=== PATIENT | female | born 1980 | race Caucasian/White ===

== ENCOUNTER 2025-03-16 12:47 | Emergency (ER) | payer MEDICAID, SELFPAY ==
--- NOTE | 2025-03-16 12:59 | EKG_ITS ---
[facility] Test Date: 2025-03-16 Pat Name: ALEXANDRA BOURGEOIS Department: Room: - Gender: Female Director Clinical Data: : 1980 Requested By: Félix Randolph Order Number: [id number] Reading MD: Félix Randolph Measurements Intervals [place] Rate: 81 P: 62 VA: 152 QRS: 66 QRSD: 78 T: 55 QT: 364 QTc: 424 Interpretive Statements SINUS RHYTHM POSSIBLE RIGHT VENTRICULAR CONDUCTION DELAY [RSR (QR) IN V1/V2] No previous ECG available for comparison /store/[email or web address]/[id number]
[2025-03-16] MEDS: DiphenhydrAMINE INJ 50 MG/ML VIAL 25 MG IVP (13:01)
[2025-03-16] MEDS: FAMOTIDINE INJ 10 MG/ML VIAL 2 ML 20 MG IVP (13:01)
[2025-03-16] MEDS: ONDANSETRON INJ 2 MG/ML INJ 2 ML 4 MG IV (13:02)
[2025-03-16] MEDS: MethylPREDNISolone SOD SUCC 62.5 MG/ML 2ML VIAL 125 MG IVP (13:02)
[2025-03-16] MEDS: SODIUM CHLORIDE 0.9% 1000 ML 2,000 ML 999 ML IV (13:05)
--- NOTE | 2025-03-16 13:24 | EDNOTE_ITS ---
ED Allergic Reaction RME/HPI General Chief complaint: Allergic Reaction Stated complaint: ALLERGIC REACTION TO BEE STING Time Seen by Provider: 03/16/25 12:58 Arrival date/time: 03/16/25 12:47 RME / HPI RME / HPI narrative: DR. VALLECILLO MAIN ED EVALUATION: 44 year old female presents to the Emergency Department brought in by the with complaint of a severe allergic reaction after a bee sting. called police and EMS but did not wait and brought the patient here and was seen at the triage area. Patient has history of allergies and has epi pens; at scene they tried an epi pen but missed the spot and then has another dose. At arrival, the patient passed out, was cold and clammy, and unresponsive; but then the patient became more awake. Per , patient has chronic lower abdominal pain. She has been seen here for it but has not seen a GI specialist, possibly fibroids but unsure. Patient complains of chronic lower abdominal cramping. Related Data Previous Rx's ?Medication ?Instructions ?Recorded hydrocodone 5 mg-acetaminophen 325 1 tab PO Q6H PRN pa in #5 tabs 07/11/24 mg tablet omeprazole 20 mg capsule,delayed 20 mg PO QDAY #30 cap s 07/11/24 release sucralfate 1 gram tablet (Carafate) 1 g PO BID #30 tab s 07/11/24 epinephrine 0.3 mg/0.3 mL 0.3 ml subcut DAILY ALLERGIC 03/16/25 injection, auto-injector (EpiPen REACTION #2 ea 2-Deshaun) Allergies Allergy/AdvReac Type Severity Reaction Status Date / Time bee venom protein (honey bee) Allergy Verified 07/10/24 15:09 Review of Systems Review of Systems Systems Reviewed: All systems reviewed, normal except as documented Narrative Review of Systems: GEN: No fever, no chills, no weight loss, allergic reaction (see HPI) EYES: No discharge, no visual changes, no pain HEENT: No ear pain, no congestion, no sore throat PULM: No shortness of breath, no cough, no congestion CV: No chest pain, no dyspnea on exertion, no palpitations GI: No nausea, no vomiting, no diarrhea, + chronic lower abdominal pain, no constipation : No frequency, no urgency and no dysuria MUSC/SKEL: No joint pain, no back pain SKIN: No rash PSYCH: No hallucinations, no depression HEME/LYMPH: No easy bleeding or bruising tendencies NEURO: No weakness, no headache Past Medical History Past Medical History CARDIAC: Positive Hypercholesterolemia Social History SMOKING STATUS: Light (< 1 pack/day) SUBSTANCE USE: does not use ALCOHOL: Current ED Exam General General appearance: Present other (Initially patient was obtunded, cold, and clammy; then more alert.) Head Head exam: Present atraumatic, normocephalic and normal inspection Eye Eye exam: Present normal appearance, PERRL and EOMI ENT ENT exam: Present normal exam, normal oropharynx and mucous membranes moist Neck Neck exam: Present normal inspection, full ROM and trachea midline Chest Chest inspection: Present normal inspection and symmetric chest wall rise Respiratory Respiratory exam: Present normal lung sounds bilaterally Cardiovascular Cardiovascular exam: Present regular rate, normal rhythm and normal heart sounds Abdominal Exam Abdominal exam: Present soft and normal bowel sounds; Absent tenderness (chronic lower abdominal cramping but no tenderness at all on palpation), guarding or [place] ound Extremities Exam Extremities exam: Present normal inspection and full ROM Back Exam Back exam: Present normal inspection and full ROM Neurological Exam Neurological exam: Present alert, oriented X3 and CN II-XII intact Psychiatric Psychiatric exam: Present normal affect and normal mood Skin Skin exam: Present warm, intact, normal color and other (cool) Course Quality Measures none Orders Category Date Time Status Telecommunication Equipment Repairer NOW Care 03/16/25 12:59 Active Continuous Pulse Oximetry NOW Care 03/16/25 13:00 Active EKG (ED ONLY) *Do not use* NOW Care 03/16/25 12:59 Completed Insert IV STAT Care 03/16/25 12:59 Active EKG (ED Only) Stat Exams 03/16/25 12:59 Draft Acetaminophen Ivpb [Ofirmev Inj] Med 03/16/25 13:02 Active 1,000 mg in 100 ml IV Q6H DiphenhydrAMINE INJ [Benadryl Inj] Med 03/16/25 12:49 Discontinued 25 mg IVP X1 ONE Famotidine Inj [Pepcid Inj] Med 03/16/25 12:49 Discontinued 20 mg IVP X1 ONE LORazepam [Ativan Inj] Med 03/16/25 13:00 Discontinued 0.5 mg IVP X1 ONE MethylPREDNISolone.* [SoluMEDROL Inj] Med 03/16/25 12:49 Discontinued 125 mg IVP X1 ONE Ondansetron Inj [Zofran Inj] Med 03/16/25 12:49 Discontinued 4 mg IV X1 ONE Sodium Chloride 0.9% 1000 ml [Ns] 2,000 ml Med 03/16/25 12:51 Discontinued IV 999 mls/hr Oxygen Delivery STAT RT 03/16/25 12:59 Active Reevaluation(s) Reevaluation #1: After warm blankets, medicine, and fluids the patient is feeling better and has no discomfort. Time: 13:21 Vital Signs Vital signs: Vital Signs Temperature 97.9 F 03/16/25 13:28 Pulse Rate 94 03/16/25 13:28 Respiratory Rate 20 03/16/25 13:28 Blood Pressure 111/60 03/16/25 13:28 Pulse Oximetry (%) 99 03/16/25 13:28 Oxygen Delivery Method Room Air 03/16/25 13:28 Allergic Reaction MDM Narrative MDM Narrative:: Cely Maldonado am scribing for and in the presence of Dr. Vallecillo. Patient data External records reviewed:: [facility] previous records (Reviewed last ED visit dated 07/10/24, discharged with the following: Degeneration of uterine fibroid) Clinical information provided by:: patient and spouse Social determinants that could affect healthcare access:: alcohol use Patient has the following chronic illnesses:: Allergies has an EPI pen, GERD. How is presenting disease/condition affected by chronic disease/condition?: exacerbated by Evaluation data The following diagnostics were reviewed and interpreted by me:: lab results and EKG tracing(s) Lab and/or radiology exams considered but not ordered:: none Interpretation Summary: EKG#1: EKG at 1429 hours. Interpreted by me: sinus rhythm, rate 81, conduction delay, ME interval 152 ms, QRS 78 ms, QT/QTc 364/402, P-R-T axis 62, 66, and 55 Medications / Prescriptions Medications or Prescriptions considered but not ordered:: none Medication administrations:: Medication Administration History Acetaminophen (Ofirmev Inj) 1,000 mg in 100 mls @ 250 mls/hr IV Q6H KOTA Stop: 03/17/25 07:25 Last Admin: 03/16/25 14:05 Dose: 250 mls/hr Documented By: Discontinued Medications Diphenhydramine HCl (Diphenhydramine Inj 50 Mg/Ml Vial) 25 mg IVP X1 ONE Stop: 03/16/25 12:50 Last Admin: 03/16/25 13:01 Dose: 25 mg Documented By: DANIEL Famotidine (Famotidine Inj 10 Mg/Ml Vial 2 Ml) 20 mg IVP X1 ONE Stop: 03/16/25 12:50 Last Admin: 03/16/25 13:01 Dose: 20 mg Documented By: DANIEL Sodium Chloride (Ns) 2,000 mls @ 999 mls/hr IV .Q2H1M ONE Stop: 03/16/25 14:51 Last Admin: 03/16/25 13:05 Dose: 999 mls/hr Documented By: DANIEL Lorazepam (Lorazepam 2 Mg/Ml Vial) 0.5 mg IVP X1 ONE Stop: 03/16/25 13:01 Last Admin: 03/16/25 14:06 Dose: 0.5 mg Documented By: SARAH Methylprednisolone Sodium Succinate (Methylprednisolone Sod Succ 62.5 Mg/Ml 2ml Vial) 125 mg IVP X1 ONE Stop: 03/16/25 12:50 Last Admin: 03/16/25 13:02 Dose: 125 mg Documented By: DANIEL Ondansetron HCl (Ondansetron Inj 2 Mg/Ml Inj 2 Ml) 4 mg IV X1 ONE; Protocol Stop: 03/16/25 12:50 Last Admin: 03/16/25 13:02 Dose: 4 mg Documented By: DANIEL see above Consultations Consultation(s) initiated? (list below): No Diagnosis Differential Diagnosis allergic reaction: anaphylaxis, allergic reaction, angioedema and contact dermatitis Most likely diagnosis given after review of the tests above:: Allergic reaction to bee sting Chronic abdominal pain Admission Indicated Admission indicated?: not indicated Admission Request Was there a request for admission?: No Disposition Plan Disposition Plan: Discharge Discharge Attestation Discharge Attestation: The patient and all family members were given an opportunity to ask questions and understood the discharge instructions. Discharge instructions specifically effects, indications for sooner follow up or return to the emergency department, and the expected course of current diagnosis. Patient condition: Stable Critical Care Time Critical Care Time Critical Care Time: Yes Total Critical Care Time (min.): 60 Attestation: The high probability of sudden, clinically significant deterioration in the patient?s condition required the highest level of my preparedness to intervene urgently. The services I provided to this patient were to treat and/or prevent clinically significant deterioration. Services included the following: chart data review, reviewing nursing notes and/or old charts, documentation time, media consultant collaboration regarding findings and treatment options, medication orders and management, direct patient care, vital sign assessments and ordering, interpreting and reviewing diagnostic studies and lab tests. Aggregate critical care time includes only time during which I was engaged in work directly related to the patient?s care, as described above, whether at bedside or elsewhere in the Emergency Department. It did not include time spent performing other reported procedures or the services of residents, students, nurses or physician assistants. Discharge Plan Plan Patient Disposition: HOME (Self Care) Patient condition on transfer: Stable Prescriptions/Referrals Prescriptions/Med Rec: New epinephrine [EpiPen 2-Deshaun] 0.3 mg/0.3 mL auto-injector 0.3 ml subcut DAILY MDD 2 Qty: 2 2RF No Action omeprazole 20 mg capsule,delayed release(DR/EC) 20 mg PO QDAY Qty: 30 0RF sucralfate [Carafate] 1 gram tablet 1 g PO BID Qty: 30 0RF hydrocodone-acetaminophen 5-325 mg tablet 1 tab PO Q6H MDD 9 PRN (Reason: pain) Qty: 5 0RF Problem List Clinical Impression: Allergic reaction to bee sting, Chronic abdominal pain Patient/Caregiver Discharge Instructions Education Materials: ED BEE STING General Allergic Rxn Additional Instructions: Please follow-up with your primary care physician within a week. Return to the Emergency Department as needed. Print Language: Indonesian Stand Alone Forms: Mag[employer]ie Award Info., Patient Portal Info Letter
[2025-03-16 13:28] VITALS: BP 111/60; PULSE 94; RESP 20; TEMP 36.6; O2SAT 99
[2025-03-16] MEDS: ACETAMINOPHEN IVPB 1,000 MG/100 ML VIAL 250 MG IV (14:05)
[2025-03-16] MEDS: LORazepam 2 MG/ML VIAL 0.5 MG IVP (14:06)
== END 2025-03-16 17:05 | disposition home or self-care (01) ==
LOC: SERX 14:30
PROVIDERS: Emergency Provider Family Medicine
DX: T63.441A Toxic effect of venom of bees, accidental (unintentional), initial encounter (principal); G89.29 Other chronic pain; R10.30 Lower abdominal pain, unspecified
CPT/HCPCS: 93005; 96374; 99284; J0131; J1200; J2060; J2405; J2919; J3490; J7030

== ENCOUNTER 2025-07-10 19:02 | Emergency (ER) | payer MEDICAID, SELFPAY ==
--- NOTE | 2025-07-10 19:22 | XR_ITS ---
Examination: Foot, left, 3 views Technique: AP, oblique, lateral views foot, 3 views Date and time of exam: July 10, 2025 1930 hours INDICATIONS: Twisting injury to the foot 2 days ago, foot pain. FINDINGS: No acute fracture No dislocation No foreign body IMPRESSION: No acute fracture
[2025-07-10 20:00] VITALS: BP 148/82; PULSE 87; RESP 20; TEMP 36.7; O2SAT 98; BMI 28.1
--- NOTE | 2025-07-10 20:02 | XR_ITS ---
EXAMINATION: Ankle, left 3 views . Technique: Ankle AP, oblique, lateral 3 views Date and time of exam: July 10, 2025, 2004 hours INDICATIONS: Twisting injury to the ankle today, ankle pain. FINDINGS: No acute fracture No dislocation No foreign body IMPRESSION: No acute fracture
[2025-07-10] MEDS: HYDROcodone/APAP 5/325 TABLET 1 TAB PO (20:30)
--- NOTE | 2025-07-10 21:17 | XR_ITS ---
Examination: CT left ankle, without contrast. 2-D sagittal reconstructions. 2-D coronal reconstructions. 3-D reconstructions. Date and time of exam:July 10, 2025 2129 hours INDICATIONS: Patient fell today with injury to the ankle, ankle pain CTDI: vol (mGy):4.79 DLP: (mGycm):142 Technique: Multiple 1.25 mm axial sections of the left ankle have been obtained. 2-D sagittal and coronal reconstructions have been obtained. 3-D reconstructions have been obtained. Low dose protocols were performed. One or more of the following dose reduction techniques were used; automated exposure control, adjustment of the mA and/or KV according to patient size, use of iterative reconstruction technique. Findings: No fracture or dislocation. No opaque foreign body Tarsal bones are intact No Lisfranc tarsometatarsal dislocation IMPRESSION: No ankle fracture or dislocation As clinically warranted, an elective right ankle follow-up would best assess for tendon or ligamentous tear
--- NOTE | 2025-07-11 03:16 | EDNOTE_ITS ---
Lower Extremity Injury RME/HPI General Chief Complaint: Ankle/Foot Injury Stated Complaint: Left foot fell down stairs last night Time Seen by Provider: 07/10/25 20:02 Arrival date/time: 07/10/25 19:02 45F with no significant PMH presents to ED with L ankle/foot pain after she fell down some steps on her stairs. Patient denies hitting her head/neck. Limitations: no limitations Related Data Previous Rx's ?Medication ?Instructions ?Recorded hydrocodone 5 mg-acetaminophen 325 1 tab PO Q6H PRN pa in #5 tabs 07/11/24 mg tablet omeprazole 20 mg capsule,delayed 20 mg PO QDAY #30 cap s 07/11/24 release sucralfate 1 gram tablet (Carafate) 1 g PO BID #30 tab s 07/11/24 epinephrine 0.3 mg/0.3 mL 0.3 ml subcut DAILY ALLERGIC 03/16/25 injection, auto-injector (EpiPen REACTION #2 ea 2-Deshaun) Allergies Allergy/AdvReac Type Severity Reaction Status Date / Time bee venom protein (honey bee) Allergy Verified 07/10/25 19:09 Review of Systems Review of Systems Systems Reviewed: All systems reviewed, normal except as documented Constitutional Constitutional: Reports system reviewed and no additional complaints, except as documented, Denies fever(s) and Denies headache(s) ENT Ears, Nose, Mouth, and Throat: Denies disequilibrium and Denies headache(s) Cardiovascular Cardiovascular: Reports system reviewed and no additional complaints, except as documented, Denies chest pain and Denies dyspnea Respiratory Respiratory: Reports system reviewed and no additional complaints, except as doc umented, Denies cough and Denies dyspnea Gastrointestinal Gastrointestinal: Reports system reviewed and no additional complaints, except as documented, Denies abdominal pain, Denies nausea and Denies vomiting Musculoskeletal Musculoskeletal: Reports as per HPI and Reports arthralgias Neurologic Neurologic: Reports system reviewed and no additional complaints, except as documented, Denies confusion, Denies disequilibrium and Denies headache(s) Psychiatric Psychiatric: Denies confusion Past Medical History Past Medical History NEUROLOGIC: Negative Neurological Disorders CARDIAC: Positive Hypercholesterolemia; Negative Cardiac Disorders or Congestive Heart Failure RESPIRATORY: Negative Chronic Obstructive Pulmonary Disease (COPD) or Asthma GASTROINTESTINAL: Negative Gastrointestinal Disorders GENITOURINARY: Negative Genitourinary Disorders or Renal Disease MUSCULOSKELETAL: Negative Musculoskeletal Disorders ENDOCRINE: Negative Endocrine Disorders, Diabetes Mellitus Type 1 or Diabetes Mellitus Type 2 HEMATOLOGIC: Negative Blood Disorders or Sickle Cell Disease OTHER HISTORY: Negative Autoimmune Disease Social History SMOKING STATUS: Current some day smoker SUBSTANCE USE: does not use ED Exam General Limitations: Present no limitations General appearance: Present alert and in no apparent distress Head Head exam: Present atraumatic Eye Eye exam: Present normal appearance, PERRL and EOMI ENT ENT exam: Present normal exam, normal oropharynx and mucous membranes moist Neck Neck exam: Present normal inspection, full ROM and trachea midline Chest Chest inspection: Present normal inspection and symmetric chest wall rise Respiratory Respiratory exam: Present normal lung sounds bilaterally Cardiovascular Cardiovascular exam: Present regular rate, normal rhythm and normal heart sounds Abdominal Exam Abdominal exam: Present soft and normal bowel sounds Expanded Lower Extremity Exam Ankle exam: Present tenderness (L) Back Exam Back exam: Present normal inspection and full ROM Neurological Exam Neurological exam: Present alert, oriented X3 and CN II-XII intact Psychiatric Psychiatric exam: Present normal affect and normal mood Skin Skin exam: Present warm, dry, intact and normal color Course Quality Measures none Orders Category Date Time Status Crutches .NOW Care 07/10/25 22:39 Completed paige wrap [Splint / Immobilizer] STAT Care 07/10/25 22:[address] ankle LT wo con Stat Exams 07/10/25 21:17 Completed XR ankle comp LT min 3V Stat Exams 07/10/25 20:02 Completed XR foot comp LT min 3V Stat Exams 07/10/25 19:22 Completed HYDROcodone*/APAP 5/325 [[place] 5/325] Med 07/10/25 20:02 Discontinued 1 tab PO X1 ONE Vital Signs Vital signs: Vital Signs Temperature 98.1 F 07/10/25 20:00 Pulse Rate 87 07/10/25 20:00 Respiratory Rate 20 07/10/25 20:00 Blood Pressure 148/82 H 07/10/25 20:00 Pulse Oximetry (%) 98 07/10/25 20:00 Oxygen Delivery Method Room Air 07/10/25 20:00 O2 at 98% on RA and WNLs Extremity Injury, Lower MDM Narrative MDM Narrative:: 45F with no significant PMH presents to ED with L ankle/foot pain after she fell down some steps on her stairs. Patient denies hitting her head/neck. Physical exam reveals L ankle tenderness. ROM limited. Patient is afebrile, calm, and alert. XR no fx. Given degree of tenderness, CT was obtained, which also showed no fx. Given PAIGE, meds, and behavioral health counselor. Patient already had crutches. Patient data External records reviewed:: [facility] previous records Clinical information provided by:: patient Social determinants that could affect healthcare access:: none Patient has the following chronic illnesses:: none How is presenting disease/condition affected by chronic disease/condition?: no chronic disease Evaluation data The following diagnostics were reviewed and interpreted by me:: radiology exam(s) Lab and/or radiology exams considered but not ordered:: ordered Interpretation Summary: above Medications / Prescriptions Medications or Prescriptions considered but not ordered:: ordered Medication administrations:: Medication Administration History Discontinued Medications Hydrocodone Bitart/Acetaminophen (Hydrocodone/Apap 5/325 Tablet) 1 tab PO X1 ONE Stop: 07/10/25 20:03 Last Admin: 07/10/25 20:30 Dose: 1 tab Documented By: above Consultations Consultation(s) initiated? (list below): No Diagnosis Extremity Injury, Lower Differential Diagnosis: ankle sprain and strain, acute internal derangement of knee, puncture wound of foot, fracture of toe and ankle fracture Most likely diagnosis given after review of the tests above:: ankle sprain and strain Admission Indicated Admission indicated?: not indicated Admission Request Was there a request for admission?: No Disposition Plan Disposition Plan: Discharge Discharge Attestation Discharge Attestation: The patient and all family members were given an opportunity to ask questions and understood the discharge instructions. Discharge instructions specifically effects, indications for sooner follow up or return to the emergency department, and the expected course of current diagnosis. Patient condition: Stable Discharge Plan Plan Patient Disposition: HOME (Self Care) Discharge Disposition comment: STable Prescriptions/Referrals Prescriptions/Med Rec: No Action omeprazole 20 mg capsule,delayed release(DR/EC) 20 mg PO QDAY Qty: 30 0RF sucralfate [Carafate] 1 gram tablet 1 g PO BID Qty: 30 0RF hydrocodone-acetaminophen 5-325 mg tablet 1 tab PO Q6H MDD 9 PRN (Reason: pain) Qty: 5 0RF epinephrine [EpiPen 2-Deshaun] 0.3 mg/0.3 mL auto-injector 0.3 ml subcut DAILY MDD 2 Qty: 2 2RF Referrals: Casper,Orquidea, PA-C [Primary Care Provider] - In 1 week Problem List Clinical Impression: Ankle sprain and strain Patient/Caregiver Discharge Instructions Education Materials: ED Ankle Sprain (Adult) Additional Instructions: Please follow-up with PCP within 24-48 hours and return immediately if symptoms worsen. If problem persists, recommend outpatient PT and/or MRI follow-up. In the meantime, rest, use ice/heat, and/or compression. Print Language: Jordanian Stand Alone Forms: Patient Portal Info Letter PA/SPECIAL EFFECTS SPECIALIST Supervising Physician PA/SPECIAL EFFECTS SPECIALIST Supervising Physician: Dr. Novoa
== END 2025-07-10 23:01 | disposition home or self-care (01) ==
PROVIDERS: Emergency Provider Emergency Medicine; PCP Physician Assistant
DX: S93.402A Sprain of unspecified ligament of left ankle, initial encounter (principal); S96.912A Strain of unspecified muscle and tendon at ankle and foot level, left foot, initial encounter; W10.9XXA Fall (on) (from) unspecified stairs and steps, initial encounter
CPT/HCPCS: 73610; 73630; 73700; 99284; A9270

== ENCOUNTER → 2025-07-31 | Outpatient (CLI) | payer MEDICAID, SELFPAY ==
--- NOTE | 2025-07-31 11:30 | XR_ITS ---
Examination: Abdomen sonogram, complete Date and time of exam: July 31, 2025 1202 hours INDICATIONS: Onset lower abdominal pain beginning one year ago. Technique: Multiple real-time grayscale transabdominal sonographic images of the abdomen have been obtained. Findings: Normal gallbladder. Normal common bile duct 0.4 cm Pancreatic head 1.6 cm Aorta not enlarged. Liver 14.6 cm fatty infiltration smooth contour no focal liver lesions. Normal hepatopedal portal venous flow Patent IVC Right kidney 10.4 cm renal cortex 1.9 cm Left kidney 11.9 cm cortex 1.9 cm Spleen 10.9 cm IMPRESSION: Normal gallbladder Fatty infiltration throughout the liver no focal liver lesions.
== END | disposition home or self-care (01) ==
PROVIDERS: PCP Physician Assistant; Referring Provider Internal Medicine Gastroenterology; Visit Provider Internal Medicine Gastroenterology
DX: K76.0 Fatty (change of) liver, not elsewhere classified (principal)
CPT/HCPCS: 76700